=== PATIENT | female | born 1985 | race Caucasian/White ===

== ENCOUNTER 2022-04-06 16:43 | Outpatient (CLI) | payer OTHER, SELFPAY ==
[2022-04-06 22:18] LABS: Total Protein Urine < 5 mg/dL
[2022-04-06 22:19] LABS: Creatinine Urine > 346.5 mg/dL
[2022-04-06 22:33] LABS: Albumin* 4.6 g/dL (3.3-5.0); Chloride* 98 mmol/L (96-114)
[2022-04-06 22:34] LABS: Potassium* 4.5 mmol/L (3.6-5.1); Sodium* 135 mmol/L (135-149)
[2022-04-06 22:36] LABS: Alkaline Phosphatase* 63 U/L (40-150); Aspartate Amino Transferase* 49 U/L (12-35); Bilirubin Total* 0.5 mg/dL (0.1-1.5); Blood Urea Nitrogen* 16 mg/dL (5-24); Carbon Dioxide* 27 mmol/L (20-32); Cholesterol* 200 mg/dL (90-199); Creatinine* 0.8 mg/dL (0.5-1.5); Estimated Glomerular Filt Rate 97 ml/min; Glucose* 195 mg/dL (60-115); Total Protein* 7.3 g/dL (6.0-8.3)
[2022-04-06 22:37] LABS: Alanine Aminotransferase* 58 U/L (4-35); Calcium* 9.6 mg/dL (8.4-10.6); HDL Cholesterol* 35 mg/dL (>=50); LDL Cholesterol Calculated 102 mg/dL (<100); Triglycerides* 313 mg/dL (40-149)
[2022-04-06 22:57] LABS: Microalbumin Creatinine Ratio 0 mg/g (0-30); Microalbumin Urine 2 mg/dL
[2022-04-06 23:07] LABS: Hepatitis C Virus Antibody* Negative (Negative)
[2022-04-06 23:19] LABS: Vitamin B12* 403 pg/mL (243-894)
== END 2022-04-06 16:44 | disposition home or self-care (01) ==
PROVIDERS: PCP Family Medicine; Visit Provider Family Medicine
DX: Z01.419 Encounter for gynecological examination (general) (routine) without abnormal findings (principal); Z11.59 Encounter for screening for other viral diseases; E11.9 Type 2 diabetes mellitus without complications; Z79.899 Other long term (current) drug therapy; Z13.6 Encounter for screening for cardiovascular disorders
CPT/HCPCS: 80053; 80061; 82043; 82570; 82607; 84156; 86803